=== PATIENT | male | born 1955 | race Caucasian/White ===

== ENCOUNTER → 2018-04-03 | Day surgery (SDC) | payer OTHER ==
[~2018-04-03] MED LIST: IV RINGERS,LACTATED 1000ML 1,000 ML IV SCH; PROPOFOL 40 ML IV ONE
[2018-04-03 09:21] VITALS: BP 114/65
--- NOTE | 2018-04-03 20:43 | CONS ---
DATE OF CONSULTATION: 04/03/2018 REFERRING PHYSICIAN: Dr. Halie Ascencio. REASON FOR CONSULTATION: Colorectal screening. HISTORY OF PRESENT ILLNESS: A 62-year-old male with past medical history significant only for hernia repair, seen for a screening colon exam. Bowel habits are regular without diarrhea or constipation, but no melena and/or hematochezia. Weight and appetite are stable. He has noted intermittent abdominal/pelvic pain, which has awakened him from sleep, has been present for approximately 2 years, but no additional constitutional symptoms are noted. For continued issues he requests additional evaluation. PAST MEDICAL HISTORY: Status post hernia repairs. ALLERGIES: None. MEDICATIONS: None. FAMILY AND SOCIAL HISTORY: Significant for colon polyps with her brother. He is a nonsmoker, social drinker. Family history is as stated. REVIEW OF SYSTEMS: As per records. PHYSICAL EXAMINATION: VITAL SIGNS: Temperature is 97.3, pulse 83, respirations 20. HEENT: Normocephalic and atraumatic head. Pupils and extraocular muscles are not tested. Sclerae anicteric. NECK: Supple. LUNGS: Clear. CARDIOVASCULAR: Reveals S1, S2 without S3, S4 or appreciable murmur. ABDOMEN: Soft abdomen, normal bowel sounds without appreciable hepatosplenomegaly. EXTREMITIES: Reveals no cyanosis, clubbing or edema. IMPRESSION AND PLAN: Colorectal screening is warranted at this time. Risks and benefits of procedure including risk of hemorrhage and perforation have been discussed with the patient and is willing to proceed. If this is unrevealing, the patient has continued pain, then a CT scan of abdomen and pelvis would be suggested for further evaluation. SULAIMAN SOMERS MD DR: [place]/miko JOB#: [id number] / [id number]
== END | disposition home or self-care (01) ==
LOC: SURG 06:56
PROVIDERS: ATTEND Internal Medicine Gastroenterology
DX: Z12.11 Encounter for screening for malignant neoplasm of colon (principal); K57.30 Diverticulosis of large intestine without perforation or abscess without bleeding; K64.0 First degree hemorrhoids; Z98.890 Other specified postprocedural states; Z72.89 Other problems related to lifestyle
CPT/HCPCS: 45378; J2704